=== PATIENT | female | born 1985 | race African-American/Black ===

== ENCOUNTER 2017-07-29 21:28 | Emergency (ER) | payer OTHER ==
[~2017-07-29] VITALS: Ht 162.6 cm; Wt 77.1 kg
[2017-07-29] MEDS ORDERED: IBUPROFEN 600 MG TAB PO STA (22:11)
[2017-07-29 22:42] VITALS: BP 125/76
== END 2017-07-29 22:13 | disposition home or self-care (01) ==
LOC: FSED 21:28
DX: R07.9 Chest pain, unspecified (principal); M94.0 Chondrocostal junction syndrome [Tietze]
CPT/HCPCS: 81025; 99282

== ENCOUNTER 2018-05-09 21:31 | Emergency (ER) | payer BC, OTHER ==
[~2018-05-09] VITALS: Ht 162.6 cm; Wt 77.1 kg
--- OUTSIDE RECORDS SUMMARY | 2018-05-09 21:34 | XMS REPORT ---
Author Author [facility] Address Unknown Phone Unavailable Care Team Providers Care Saw Tailer Name Role Phone Anmol Caban Unavailable Unavailable Payers Payer Name Policy Type Policy Number Effective Date Expiration Date Problems This patient has no known problems. Allergies, Adverse Reactions, Alerts Allergy Name Allergy Type Status Severity Reaction(s) Onset Date Inactive Date Treating Clinician Comments No Known Allergies DA Active U 2018-04-30 00:00:00 No Known Allergies DA Active U 2016-08-08 00:00:00 Medications This patient has no known medications. Encounters Start Date/Time End Date/Time Encounter Type Admission Type Attending [facility] Facility Care Department Encounter ID 2017-06-30 15:57:00 2017-06-30 15:57:00 Outpatient Juan Carlos Caban [id number] 11:31:00 2017-04-06 11:31:00 Outpatient Juan Carlos Caban [id number] 10:27:00 2017-04-06 10:27:00 Outpatient Juan Carlos Caban [id number] 10:10:00 2017-04-06 10:10:00 Outpatient Juan Carlos Caban [id number]
== END 2018-05-09 22:45 | disposition home or self-care (01) ==
LOC: FSED 21:31
DX: R50.9 Fever, unspecified (principal); R05 Cough; J01.00 Acute maxillary sinusitis, unspecified
CPT/HCPCS: 99282